=== PATIENT | female | born 1955 | race Caucasian/White ===

== ENCOUNTER 2016-07-14 21:35 | Emergency (ER) | payer OTHER ==
[~2016-07-14] VITALS: Ht 170.2 cm; Wt 93.2 kg
[2016-07-14 22:02] VITALS: BP 121/83
[2016-07-14] MEDS ORDERED: MOTRIN800 MG PO (23:09)
== END 2016-07-14 23:36 | disposition home or self-care (01) ==
LOC: EME 21:35
PROC: 2W3GX1Z Immobilization of Right Thumb using Splint (ICD-10-PCS; principal; 2016-07-14)
DX: S63.601A Unspecified sprain of right thumb, initial encounter (principal); Y99.0 Civilian activity done for income or pay; Y09 Assault by unspecified means
CPT/HCPCS: 73130; 99281; 99283